=== PATIENT | male | born 1970 | race African-American/Black ===

== ENCOUNTER 2025-04-17 10:33 | Emergency (ER) | payer OTHER, BC ==
[~2025-04-17] VITALS: Ht 177.8 cm; Wt 84.0 kg
[2025-04-17 10:37] VITALS: O2SAT 99
[2025-04-17] MEDS: ACETAMINOPHEN 325MG TABLET PO ONE (11:23)
[2025-04-17 11:26] VITALS: BP 138/90; PULSE 74; RESP 18; TEMP 36.6; O2SAT 100
[2025-04-17] MEDS ORDERED: TOPUD PO (11:40)
[2025-04-17] MEDS: BACITRACIN ZINC OINT UDPKT TOP ONE (12:15)
== END 2025-04-17 11:26 | disposition home or self-care (01) ==
LOC: ER 10:33
DX: S09.8XXA Other specified injuries of head, initial encounter (principal); J45.909 Unspecified asthma, uncomplicated; I10 Essential (primary) hypertension; V89.2XXA Person injured in unspecified motor-vehicle accident, traffic, initial encounter; Z91.013 Allergy to seafood; W22.10XA Striking against or struck by unspecified automobile airbag, initial encounter; Y93.89 Activity, other specified; Y92.410 Unspecified street and highway as the place of occurrence of the external cause; Y99.8 Other external cause status
CPT/HCPCS: 70450; 99284; Z7610 ×2